=== PATIENT | female | born 1945 | race Caucasian/White ===

== ENCOUNTER 2016-09-22 17:59 | Inpatient (IN) | payer BC, MEDICARE ==
[~2016-09-22] VITALS: Ht 165.1 cm; Wt 67.6 kg
[~2016-09-22 17:59] MED LIST: HYDR-3111 PO
[2016-09-22 18:08] VITALS: BP 145/75; PULSE 98; RESP 16; TEMP 99.4; O2SAT 96
[2016-09-22] MEDS ORDERED: ROSU20 PO (18:36)
[2016-09-22 18:38] LABS: GLUCOSE,URINE NEG (NEG); KETONE, URINE TRACE mg/dL (NEG); NITRITE,URINE NEG (NEG); PH, URINE 5.5 (5.0-8.5)
[2016-09-22] MEDS ORDERED: ONDANSETRON HCL 4 MG/2 ML VIAL IVP ONE (18:45)
[2016-09-22] MEDS ORDERED: SODIUM CHLORIDE 0.9% FLUSH 10 ML FLUSH IV FLUSH PRN ×2 (18:45→21:45)
[2016-09-22] MEDS ORDERED: MORPHINE SULFATE 4 MG/ML INJ IV PUSH ONE (18:45)
--- NOTE | 2016-09-22 18:46 | PD ---
HPI . Abdominal pain Chief Complaint: Abdominal Pain Time Seen by Provider: 18:29 Travel History International Travel<30 days: No Contact w/Intl Traveler<30days: No Traveled to known affect area: No History of Present Illness HPI Patient presents with upper abdominal pain which started yesterday. It started 2 hours after eating Arabic food. It is associated with nausea but no vomiting. Symptoms have become progressively worse today. She describes a constant dull pain which is occasionally sharp. She states that her maximum pain is 8-9/10. It is associated with a poor appetite. She has not noticed any exacerbating or relieving factors. She has a previous history of idiopathic pancreatitis. She states that her symptoms today are similar to symptoms that she had then. PFSH Past Medical History Cancer: No Cardiovascular Problems: No High Cholesterol: Yes Diabetes: No Diminished Hearing: No Endocrine: No Gastrointestinal Disorders: Yes Genitourinary: No Immune Disorder: No Implanted Vascular Access Dvce: No Musculoskeletal: No Neurologic: No Psychiatric: No Reproductive: No Respiratory: No Immunizations Current: Yes Pancreatitis: Yes Thyroid Disease: No Tetanus Vaccination: Unknown Influenza Vaccination: Yes ?: Not Past Surgical History Eye Surgery: Yes (LID LIFT) Other Surgery: Yes Social History Alcohol Use: No Tobacco Use: No Substance Use: No Allergies-Medications (Allergen,Severity, Reaction): Coded Allergies: No Known Allergies (Verified , 09/22/16) Reported Meds & Prescriptions Reported Meds & Active Scripts Active Reported Crestor (Rosuvastatin Calcium) 20 Mg Tab 20 Mg PO DAILY Review of Systems Except as stated in HPI: all other systems reviewed are Neg General / Constitutional: Positive: Fever, Chills Gastrointestinal: Positive: Nausea, Abdominal Pain, Loss of Appetite, No: Vomiting, Diarrhea Genitourinary: No: Urgency, Frequency, Dysuria Physical Exam Narrative GENERAL: Awake and alert and in no acute distress. SKIN: Warm and dry. HEAD: Atraumatic. Normocephalic. EYES: Pupils equal and round. Extraocular movements are intact. Sclera anicteric. ENT: No nasal bleeding or discharge. Mucous membranes pink and moist. NECK: Trachea midline. Neck is supple. CARDIOVASCULAR: Regular rate and rhythm. RESPIRATORY: No accessory muscle use. GASTROINTESTINAL: Abdomen soft. Minimal epigastric tenderness. No right upper quadrant tenderness. Nondistended. MUSCULOSKELETAL: No obvious deformities. No edema. NEUROLOGICAL: Awake and alert. No obvious cranial nerve deficits. Motor grossly within normal limits. Normal speech. PSYCHIATRIC: Appropriate mood and affect; insight and judgment normal. Data Data Last Documented VS Vital Signs Date Time Temp Pulse Resp B/P Pulse Ox O2 Delivery O2 Flow Rate FiO2 09/22/16 18:08 99.4 98 16 145/75 96 Orders Urinalysis - C+S If Indicated (09/22/16 18:12) Complete Blood Count With Diff (09/22/16 18:33) Comprehensive Metabolic Panel (09/22/16 18:33) Lipase (09/22/16 18:33) Iv Access Insert/Monitor (09/22/16 18:33) Morphine Inj (Morphine Inj) (09/22/16 18:45) Ondansetron Inj (Zofran Inj) (09/22/16 18:45) Sodium Chloride 0.9% Flush (Ns Flush) (09/22/16 18:45) MDM Medical Decision Making Medical Screen Exam Complete: Yes Emergency Medical Condition: Yes Medical Record Reviewed: Yes (patient has a history of idiopathic pancreatitis in March 2012. Workup at that time was negative for cholecystitis. She has no history of hyperlipidemia and is a nondrinker.) Differential Diagnosis Differential diagnosis of abdominal pain includes but is not limited to gastritis, pancreatitis, hepatitis, gastroenteritis, gallbladder disease, constipation, urinary retention, UTI, peptic ulcer disease, diverticulitis or appendicitis Narrative Course Patient presents with upper abdominal pain similar to pain with previous pancreatitis. Lab work all on with IV analgesics and antiemetics have been ordered. Care will be turned over to the oncoming provider at 7 PM. Diagnosis Primary Impression: Epigastric pain Lyly Hills MD September 22, 2016 18:46
[2016-09-22 18:52] LABS: BLOOD, URINE MOD (NEG)
[2016-09-22 18:53] VITALS: BP 124/62; PULSE 88; RESP 18; O2SAT 96
[2016-09-22 18:54] LABS: MUCUS URINE FEW /lpf (OCC); URINE COLOR YELLOW (YELLW/STRAW)
[2016-09-22 18:55] LABS: COMMENT (UR) CULT NOT INDICATED; CULTURE IF INDICATED CULT NOT INDICATED; SQUAMOUS EPITHELIAL CELL URINE 0-5 /hpf (0-5); WBC, URINE 0-2 /hpf (0-5)
[2016-09-22 19:11] LABS: AUTOMATED NEUTROPHIL # 9.4 TH/MM3 (1.8-7.7); BASOPHIL % 0.4 % (0.0-2.0); CHLORIDE 104 MEQ/L (98-107); EOSINOPHIL # 0.1 TH/MM3 (0-0.4); EOSINOPHIL % 0.5 % (0.0-4.0); HEMATOCRIT 40.8 % (35.0-46.0); LYMPH % 13.7 % (9.0-44.0); LYMPHOCYTE # 1.6 TH/MM3 (1.0-4.8); MEAN CELL VOLUME 93.5 FL (80.0-100.0); MEAN CORPUSCULAR HEMOGLOBIN 30.8 PG (27.0-34.0); MEAN CORPUSCULAR HGB CONC 32.9 % (32.0-36.0); MONO % 7.9 % (0.0-8.0); NEUT % 77.5 % (16.0-70.0); PLATELET COUNT 292 TH/MM3 (150-450); POTASSIUM 3.7 MEQ/L (3.5-5.1); RED BLOOD COUNT 4.36 MIL/MM3 (4.00-5.30); RED CELL DISTRIBUTION WIDTH 13.6 % (11.6-17.2); SODIUM (NA) 140 MEQ/L (136-145)
[2016-09-22 19:16] LABS: ANION GAP 10 MEQ/L (5-15); BICARBONATE 26.4 MEQ/L (21.0-32.0); BLOOD UREA NITROGEN 20 MG/DL (7-18)
[2016-09-22 19:18] LABS: ALT (GPT) 22 U/L (10-53); AST (GOT) 17 U/L (15-37)
[2016-09-22 19:19] LABS: GLOMERULAR FILTRATION RATE 81 ML/MIN (>89)
[2016-09-22 19:20] LABS: TOTAL BILIRUBIN ADULT 0.7 MG/DL (0.2-1.0)
[2016-09-22 19:21] LABS: ALKALINE PHOSPHATASE 76 U/L (45-117)
[2016-09-22 19:26] LABS: HEMO FLAGS AUTO DIFF
[2016-09-22 19:47] LABS: PLATELET ESTIMATE SMEAR NORMAL (NORMAL); PLATELET MORPHOLOGY NORMAL (NORMAL); SCAN/DIFF AUTO DIFF CONFIRMED
--- NOTE | 2016-09-22 20:39 | RADHPO ---
EXAM DATE/TIME: 09/22/2016 19:47 [facility] COMPARISON: No previous studies available for comparison. INDICATIONS : Bilateral upper quadrant pain for two days with nausea. IV CONTRAST: 95 cc Omnipaque 350 (iohexol) IV ORAL CONTRAST: No oral contrast ingested. RADIATION DOSE: 8.36 CTDIvol (mGy) MEDICAL HISTORY : Pancreatitis. Hepatitis A. SURGICAL HISTORY : None. ENCOUNTER: Initial ACUITY: 2 days PAIN SCALE: 5/10 LOCATION: Bilateral upper quadrant TECHNIQUE: Volumetric scanning of the abdomen and pelvis was performed. Using automated exposure control and ad justment of the mA and/or kV according to patient size, radiation dose was kept as low as reasonably achievable to obtain optimal diagnostic quality images. FINDINGS: LOWER LUNGS: The visualized lower lungs are clear. LIVER: There is a tiny cyst within the right lobe measuring 13 mm. There is no dilation of the biliary tree. No calcified gallstones. SPLEEN: Normal size without lesion. PANCREAS: Within normal limits. KIDNEYS: Normal in size and shape. There is no solid mass, stone or hydronephrosis. There is a 2.4 cm right r enal cyst. ADRENAL GLANDS: Within normal limits. VASCULAR: There is no aortic aneurysm. BOWEL/MESENTERY: There is focal wall thickening and pericolic inflammatory changes in the region of the proximal sigmo id colon consistent with probable acute diverticulitis. No pericolic abscess is noted. No bowel obstr uction is noted. ABDOMINAL WALL: Within normal limits. RETROPERITONEUM: There is no lymphadenopathy. BLADDER: No wall thickening or mass. REPRODUCTIVE: Within normal limits. INGUINAL: There is no lymphadenopathy or hernia. MUSCULOSKELETAL: Diffuse degenerative changes are noted throughout the thoracolumbar spine. CONCLUSION: 1. Acute diverticulitis involving the proximal sigmoid colon without pericolic abscess. 2. Simple cysts within the right lobe of the liver and right kidney. 3. Degenerative changes throughout the thoraco-lumbar spine. Harrison Moeller MD on September 22, 2016 at 20:32 Board Certified Radiologist. This report was verified electronically.
[2016-09-22 20:57] VITALS: BP 119/59; PULSE 79; RESP 15; O2SAT 95
[2016-09-22] MEDS ORDERED: IOHEXOL 350 MG/ML 10 ML VIAL (for RAD DIAG) IV ONE (20:57)
[2016-09-22] MEDS ORDERED: ACETAMINOPHEN 325 MG TAB PO PRN (21:45)
[2016-09-22] MEDS ORDERED: ONDANSETRON HCL 4 MG/2 ML VIAL IVP PRN (21:45)
[2016-09-22] MEDS ORDERED: BISACODYL 10 MG SUPP RECTAL PRN (21:45)
--- NOTE | 2016-09-22 21:50 | PD ---
Physical Exam Time Seen by Provider: 21:[address] Hills left this patient with me to check the CT scan and make a disposition. Data Data Last Documented VS Vital Signs Date Time Temp Pulse Resp B/P Pulse Ox O2 Delivery O2 Flow Rate FiO2 09/22/16 21:09 92 Nasal Cannula 2 09/22/16 20:57 79 15 119/59 09/22/16 18:08 99.4 Orders Urinalysis - C+S If Indicated (09/22/16 18:12) Complete Blood Count With Diff (09/22/16 18:33) Comprehensive Metabolic Panel (09/22/16 18:33) Lipase (09/22/16 18:33) Iv Access Insert/Monitor (09/22/16 18:33) Morphine Inj (Morphine Inj) (09/22/16 18:45) Ondansetron Inj (Zofran Inj) (09/22/16 18:45) Sodium Chloride 0.9% Flush (Ns Flush) (09/22/16 18:45) Ct Abd/Pel W Iv Contrast(Rout) (09/22/16 18:58) Iohexol 350 Inj (Omnipaque 350 Inj) (09/22/16 20:57) Admit Order (Ed Use Only) (09/22/16 21:45) Ciprofloxacin 400 Mg Premix (Cipro 400 M (09/22/16 22:00) Metronidazole 500 Mg Inj (Flagyl 500 Mg (09/22/16 21:45) Admit To Inpatient (09/22/16 ) Vital Signs (Adult) Q4H (09/22/16 21:44) Activity Oob Ad Eveline (09/22/16 21:44) Intake + Output THOMAS.QSHIFT (09/22/16 21:44) Diet Regular Basic (09/23/16 Breakfast) Sodium Chlor 0.9% 1000 Ml Inj (Ns 1000 M (09/22/16 21:44) Sodium Chloride 0.9% Flush (Ns Flush) (09/22/16 21:45) Sodium Chloride 0.9% Flush (Ns Flush) (09/23/16 09:00) Ondansetron Inj (Zofran Inj) (09/22/16 21:45) Bisacodyl Supp (Dulcolax Supp) (09/22/16 21:45) Comprehensive Metabolic Panel (09/23/16 06:00) Complete Blood Count With Diff (09/23/16 06:00) Scd Bilateral/Knee High THOMAS.BID (09/22/16 21:44) Angelito Bilateral/Knee High THOMAS.QSHIFT (09/22/16 21:44) Acetaminophen (Tylenol) (09/22/16 21:45) Acetamin-Hydrocod 325-5 Mg ([place] 5-325 (09/22/16 21:45) Morphine Inj (Morphine Inj) (09/22/16 21:45) Inpatient Certification (09/22/16 ) Admit Order (Ed Use Only) (09/22/16 21:50) Labs Laboratory Tests Test 09/22/16 09/22/16 18:30 18:45 Urine Color YELLOW Urine Turbidity CLEAR Urine pH 5.5 Urine Specific [place] 1.015 Urine Protein NEG mg/dL Urine Glucose (UA) NEG mg/dL Urine Ketones TRACE mg/dL Urine Occult Blood MOD Urine Nitrite NEG Urine Bilirubin NEG Urine Leukocyte Esterase NEG Urine RBC 4-9 /hpf Urine WBC 0-2 /hpf Urine Squamous Epithelial 0-5 /hpf Cells Urine Amorphous Sediment SMALL Urine Mucus FEW /lpf Microscopic Urinalysis Comment CULT NOT INDICATED White Blood Count 12.0 TH/MM3 Red Blood Count 4.36 MIL/MM3 Hemoglobin 13.4 GM/DL Hematocrit 40.8 % Mean Corpuscular Volume 93.5 FL Mean Corpuscular Hemoglobin 30.8 PG Mean Corpuscular Hemoglobin 32.9 % Concent Red Cell Distribution Width 13.6 % Platelet Count 292 TH/MM3 Mean Platelet Volume 8.0 FL Neutrophils (%) (Auto) 77.5 % Lymphocytes (%) (Auto) 13.7 % Monocytes (%) (Auto) 7.9 % Eosinophils (%) (Auto) 0.5 % Basophils (%) (Auto) 0.4 % Neutrophils # (Auto) 9.4 TH/MM3 Lymphocytes # (Auto) 1.6 TH/MM3 Monocytes # (Auto) 0.9 TH/MM3 Eosinophils # (Auto) 0.1 TH/MM3 Basophils # (Auto) 0.0 TH/MM3 CBC Comment AUTO DIFF Differential Comment AUTO DIFF CONFIRMED Platelet Estimate NORMAL Platelet Morphology Comment NORMAL Red Cell Morphology Comment NORMAL Sodium Level 140 MEQ/L Potassium Level 3.7 MEQ/L Chloride Level 104 MEQ/L Carbon Dioxide Level 26.4 MEQ/L Anion Gap 10 MEQ/L Blood Urea Nitrogen 20 MG/DL Creatinine 0.71 MG/DL Estimat Glomerular Filtration 81 ML/MIN Rate Random Glucose 115 MG/DL Calcium Level 8.7 MG/DL Total Bilirubin 0.7 MG/DL Aspartate Amino Transf 17 U/L (AST/SGOT) Alanine Aminotransferase 22 U/L (ALT/SGPT) Alkaline Phosphatase 76 U/L Total Protein 7.1 GM/DL Albumin 3.3 GM/DL Lipase 220 U/L [facility] Medical Record Reviewed: Yes Supervised Visit with SANJANA: Yes Interpretation(s) The CT scan shows focal wall thickening and pericolic inflammatory changes in the region of the proximal sigmoid consistent with acute diverticulitis. No pericolic abscess is noted and no bowel obstruction is noted. The urine shows trace ketones, moderate occult blood and 4-9 red cells but is otherwise normal and culture is not indicated. The CBC shows a white count of 12,000 with 76% neutrophils but is otherwise unremarkable. The complete metabolic profile shows a BUN of 20, GFR of 81 and albumen of 3.3 but is otherwise normal. The lipase is normal. Differential Diagnosis Acute diverticulitis, small bowel obstruction, intra-abdominal abscess, ischemic bowel, electrolyte disorder, anemia, urinary tract infection, colitis Narrative Course The patient has acute diverticulitis. The considering the patient's advanced age, her leukocytosis and mainly the severe pain9/[address] findings of thickened colon, the patient will be better served with inpatient treatment. I discussed the patient with Dr. Ruvalcaba, the patient will be admitted to her. Physician Communication Physician Communication I discussed the patient with Dr. Rodriguez, the patient will be admitted to her. Diagnosis Primary Impression: Epigastric pain Additional Impression: Acute diverticulitis Admitting Information Admitting Physician Requests: Admit Drew Snell MD September 22, 2016 21:50
[2016-09-22] MEDS ORDERED: LEVOFLOXACIN 500 MG PREMIX INJ 100 ML IV ONE (22:00)
[2016-09-22] MEDS ORDERED: metroNIDAZOLE 500 MG INJ 100 ML IV ONE (22:00)
[2016-09-22] MEDS: SODIUM CHLOR 0.9% 1000 ML INJ 1,000 ML IV SCH (22:19)
[2016-09-22] MEDS: CIPROFLOXACIN 400 MG PREMIX 200 ML IV SCH (22:19)
[2016-09-22 22:44] VITALS: BP 126/64
[2016-09-22] MEDS: metroNIDAZOLE 500 MG INJ 100 ML IV SCH (23:01)
[2016-09-22] MEDS: ACETAMINOPHEN/HYDROcodone 325 MG/5 MG TAB PO PRN (23:07)
[2016-09-23 00:15] VITALS: BP 108/61; PULSE 82; RESP 16; TEMP 98.4; O2SAT 93
[2016-09-23] MEDS: ACETAMINOPHEN/HYDROcodone 325 MG/5 MG TAB PO PRN ×2 (05:07→09:39)
[2016-09-23] MEDS: SODIUM CHLOR 0.9% 1000 ML INJ 1,000 ML IV SCH ×2 (05:07→15:42)
[2016-09-23 05:44] LABS: BASOPHIL % 0.3 % (0.0-2.0); EOSINOPHIL % 0.5 % (0.0-4.0); HEMATOCRIT 36.5 % (35.0-46.0); HEMO FLAGS DIFF FINAL; LYMPH % 10.3 % (9.0-44.0); MEAN CELL VOLUME 94.2 FL (80.0-100.0); MEAN CORPUSCULAR HEMOGLOBIN 31.5 PG (27.0-34.0); MEAN CORPUSCULAR HGB CONC 33.5 % (32.0-36.0); MONO % 9.2 % (0.0-8.0); NEUT % 79.7 % (16.0-70.0); PLATELET COUNT 253 TH/MM3 (150-450); RED BLOOD COUNT 3.88 MIL/MM3 (4.00-5.30); RED CELL DISTRIBUTION WIDTH 13.9 % (11.6-17.2); WHITE BLOOD COUNT 9.9 TH/MM3 (4.0-11.0)
[2016-09-23 05:51] LABS: CHLORIDE 105 MEQ/L (98-107); POTASSIUM 3.9 MEQ/L (3.5-5.1); SODIUM (NA) 141 MEQ/L (136-145)
[2016-09-23 05:56] LABS: BLOOD UREA NITROGEN 16 MG/DL (7-18)
[2016-09-23 05:57] LABS: ANION GAP 8 MEQ/L (5-15); BICARBONATE 28.3 MEQ/L (21.0-32.0)
[2016-09-23 05:58] LABS: ALT (GPT) 16 U/L (10-53)
[2016-09-23 05:59] LABS: AST (GOT) 12 U/L (15-37); GLOMERULAR FILTRATION RATE 94 ML/MIN (>89)
[2016-09-23 06:02] LABS: TOTAL BILIRUBIN ADULT 0.8 MG/DL (0.2-1.0)
[2016-09-23 06:03] LABS: ALKALINE PHOSPHATASE 67 U/L (45-117)
[2016-09-23] MEDS: MORPHINE SULFATE 4 MG/ML INJ IV PRN ×2 (06:55→11:55)
[2016-09-23] MEDS: metroNIDAZOLE 500 MG INJ 100 ML IV SCH ×2 (06:56→15:40)
--- NOTE | 2016-09-23 07:17 | HHI.HP ---
[facility] Service [facility] Primary Care Physician Delta Monteiro MD Admission Diagnosis acute diverticulitis Diagnoses: (1) Acute diverticulitis Diagnosis: Principal (2) Leukocytosis Diagnosis: Principal (3) Acute prerenal azotemia Diagnosis: Principal Chief Complaint: Abdominal pain Travel History International Travel<30 Days: No Contact w/Intl Traveler <30 Da: No Traveled to Known Affected Are: No History of Present Illness Written by Ethan Snell, acting as scribe for Dr. Fisher on 09/23/16 at 07: 11. 71-year-old female with known history of hyperlipidemia, history of pancreatitis who presented to the hospital because of abdominal pain. Patient stated that her discomfort started 4 days ago with generalized diffuse discomfort whenever she bent over to tie her shoes. She indicated that the pain progressively got worse until or Saturday night, she cannot tell exactly which night. She indicates that the pain in lower abdomen progress to an 8/10 on a pain scale. She did go to work on Saturday morning, however she was unable to finish the day and went home 2 hours early because of the abdominal pain. When she got home she laid down to rest because she had increased fatigue, decreased appetite, she indicated having chills and that she had a fever. However she did not check her temperature at that time. Because of those reasons she came to the emergency department for evaluation. Upon evaluation patient was found to have abnormal findings to include leukocytosis, prerenal azotemia, CT scan indicating diverticulitis. Patient was recommended admission to the hospital for continued management. Patient denied any runny nose, cough, congestion, diarrhea, constipation, melena, hematochezia. She indicated that she had nausea but no vomiting. Review of Systems Constitutional: DENIES: Diaphoretic episodes, Fatigue, Fever, Weight gain, Weight loss, Chills, Dizziness, Change in appetite, Night Sweats Eyes: DENIES: Blurred vision, Diplopia, Eye inflammation, Eye pain, Vision loss , Double Vision Ears, nose, mouth, throat: COMPLAINS OF: Throat pain, DENIES: Vertigo, Nasal discharge, Hoarseness, Running Nose, Sinus Pain Cardiovascular: DENIES: Chest pain, Palpitations, Syncope, Dyspnea on Exertion , Lower Extremity Edema, Orthopnea Gastrointestinal: COMPLAINS OF: Abdominal pain, Nausea, DENIES: Black stools, Bloody stools, Constipation, Diarrhea, Vomiting, Difficulty Swallowing, Anorexia Neurologic: DENIES: Abnormal gait, Headache, Localized weakness, Paresthesias, Speech Problems, Tremor, Poor Balance Psychiatric: DENIES: Anxiety, Confusion, Mood changes, Depression, Hallucinations, Agitation, Suicidal Ideation, Homicidal Ideation, Delusions Past Family Social History Past Medical History Hyperlipidemia History of pancreatitis Past Surgical History Left foot surgery Eyelid surgery Reported Medications Reported Meds & Active Scripts Active Reported Crestor (Rosuvastatin Calcium) 20 Mg Tab 20 Mg PO DAILY Allergies: Coded Allergies: No Known Allergies (Verified , 09/22/16) Family History Reviewed is significant for mother with breast cancer, coronary disease requiring open heart surgery. Father with heart disease and diabetes Social History Patient denies any tobacco, alcohol or illicit drugs Physical Exam Vital Signs Vital Signs Date Time Temp Pulse Resp B/P Pulse Ox O2 Delivery O2 Flow Rate FiO2 09/23/16 06:08 18 09/23/16 05:24 09/23/16 00:15 98.4 82 16 108/61 93 09/22/16 22:44 74 17 126/64 98 09/22/16 21:09 92 Nasal Cannula 2 09/22/16 20:57 79 15 119/59 95 Room Air 09/22/16 19:04 15 09/22/16 18:53 88 18 124/62 96 Room Air 09/22/16 18:08 99.4 98 16 145/75 96 Physical Exam GENERAL: Well-developed, well-nourished, in no acute distress. alert and orientated HEENT: Head is normocephalic without any lesions or masses noted. Facial features are symmetric. Eyes: Pupils equal round reactive to light. Extraocular muscles are intact. Conjunctivae were clear. Oropharyngeal: Pharynx without any erythema edema. Tongue is midline without deviation. Buccal mucosa is moist without any masses or lesions NECK: Supple without any masses. Trachea midline no deviation. No JVD, no bruits are appreciated CARDIAC: Regular rhythm, regular rate. S1/S2 are heard. No murmurs gallops or rubs. LUNGS: Clear to auscultation bilaterally. No wheeze, rhonchi or rales. No use of accessory muscles on inspiration or expiration. ABDOMEN: Soft, diffuse lower abdominal tenderness. Nondistended. Bowel sounds heard in all 4 quadrants. No organomegaly or masses. Negative rebound, negative guarding EXTREMITIES: No edema, pulses are equal bilaterally. No cyanosis or clubbing NEUROLOGY: Mood and affect appear appropriate. Cranial nerves II through XII grossly intact. Muscle strength 5/5 in upper and lower extremities bilaterally. Deep tendon reflexes are 2+ in upper and lower extremities bilaterally. Laboratory Laboratory Tests Test 09/22/16 09/22/16 09/23/16 18:30 18:45 05:03 Urine Color YELLOW Urine Turbidity CLEAR Urine pH 5.5 Urine Specific [place] 1.015 Urine Protein NEG Urine Glucose (UA) NEG Urine Ketones TRACE Urine Occult Blood MOD Urine Nitrite NEG Urine Bilirubin NEG Urine Leukocyte Esterase NEG Urine RBC 4-9 Urine WBC 0-2 Urine Squamous Epithelial 0-5 Cells Urine Amorphous Sediment SMALL Urine Mucus FEW Microscopic Urinalysis Comment CULT NOT INDICATED White Blood Count 12.0 9.9 Red Blood Count 4.36 3.88 Hemoglobin 13.4 12.2 Hematocrit 40.8 36.5 Mean Corpuscular Volume 93.5 94.2 Mean Corpuscular Hemoglobin 30.8 31.5 Mean Corpuscular Hemoglobin 32.9 33.5 Concent Red Cell Distribution Width 13.6 13.9 Platelet Count 292 253 Mean Platelet Volume 8.0 7.7 Neutrophils (%) (Auto) 77.5 79.7 Lymphocytes (%) (Auto) 13.7 10.3 Monocytes (%) (Auto) 7.9 9.2 Eosinophils (%) (Auto) 0.5 0.5 Basophils (%) (Auto) 0.4 0.3 Neutrophils # (Auto) 9.4 8.0 Lymphocytes # (Auto) 1.6 1.0 Monocytes # (Auto) 0.9 0.9 Eosinophils # (Auto) 0.1 0.0 Basophils # (Auto) 0.0 0.0 CBC Comment AUTO DIFF DIFF FINAL Differential Comment AUTO DIFF CONFIRMED Platelet Estimate NORMAL Platelet Morphology Comment NORMAL Red Cell Morphology Comment NORMAL Sodium Level 140 141 Potassium Level 3.7 3.9 Chloride Level 104 105 Carbon Dioxide Level 26.4 28.3 Anion Gap 10 8 Blood Urea Nitrogen 20 16 Creatinine 0.71 0.62 Estimat Glomerular Filtration 81 94 Rate Random Glucose 115 110 Calcium Level 8.7 8.6 Total Bilirubin 0.7 0.8 Aspartate Amino Transf 17 12 (AST/SGOT) Alanine Aminotransferase 22 16 (ALT/SGPT) Alkaline Phosphatase 76 67 Total Protein 7.1 6.1 Albumin 3.3 2.8 Lipase 220 Result Diagram: 09/23/16 0503 09/23/16 0503 Imaging Last Impressions Abdomen/Pelvis CT 09/22/16 1858 Signed Impressions: Service Date/Time: Thursday, September 22, 2016 19:47 - CONCLUSION: 1. Acute diverticulitis involving the proximal sigmoid colon without pericolic abscess. 2. Simple cysts within the right lobe of the liver and right kidney. 3. Degenerative changes throughout the thoraco-lumbar spine. Harrison Moeller MD Assessment and Plan Assessment and Plan 71-year-old female who presented to hospital because acute onset abdominal pain with associated nausea Acute diverticulitis CT scan does indicate acute diverticulitis involving the proximal sigmoid colon without pericolic abscess. Continue IV fluids Full liquid Diet, advance as tolerated IV antibiotics to include Cipro and Flagyl Pain control with [place] and morphine Continue to monitor for clinical improvement Leukocytosis, improved Possible etiologies could include acute infection from diverticulitis or concentrated from decreased oral intake Prerenal azotemia, resolved Likely secondary to mild dehydration from decreased oral intake Monitor renal functions DVT prevention Sequential compression devices Physician Certification 2 Midnight Certification Type: Admission for Inpatient Services Order for Inpatient Services The services are ordered in accordance with Medicare regulations or non- Medicare payer requirements, as applicable. In the case of services not specified as inpatient-only, they are appropriately provided as inpatient services in accordance with the 2-midnight benchmark. Estimated LOS (days): 2 days is the estimated time the patient will need to remain in the hospital, assuming treatment plan goals are met and no additional complications. Post-Hospital Plan: Not yet determined Problem Qualifiers (1) Leukocytosis: Qualified Code: D72.829 - Leukocytosis, unspecified type Ethan Snell September 23, 2016 07:17 Padmini Fisher MD September 23, 2016 09:52
[2016-09-23 08:00] VITALS: BP 154/89; PULSE 75; RESP 18; TEMP 98.3; O2SAT 93
[2016-09-23] MEDS ORDERED: MENTHOL LOZENGE BUCCAL PRN (08:00)
[2016-09-23] MEDS: SODIUM CHLORIDE 0.9% FLUSH 10 ML FLUSH IV FLUSH SCH ×2 (09:00→21:35)
[2016-09-23] MEDS ORDERED: PNEUMOCOCCAL POLYVALENT INJ 25 MCG/0.5 ML SYR IM ONE (09:00)
[2016-09-23] MEDS: CIPROFLOXACIN 400 MG PREMIX 200 ML IV SCH ×2 (09:33→21:36)
[2016-09-23 12:00] VITALS: BP_SYST 145; BP_SYST 154; BP_DIAS 89; PULSE 75; RESP 18; RESP 20; TEMP 98.3; TEMP 98.5; O2SAT 93
[2016-09-23 16:00] VITALS: BP 106/67; PULSE 66; RESP 18; TEMP 99.5; O2SAT 94
[2016-09-23 20:55] VITALS: BP 114/58; PULSE 63; RESP 16; TEMP 98.1; O2SAT 96
[2016-09-24] VITALS: BP 135/76; PULSE 70; RESP 18; TEMP 97.9; O2SAT 97
[2016-09-24] MEDS: metroNIDAZOLE 500 MG INJ 100 ML IV SCH ×3 (01:43→15:40)
[2016-09-24] MEDS: SODIUM CHLOR 0.9% 1000 ML INJ 1,000 ML IV SCH ×2 (06:14→14:15)
[2016-09-24] MEDS: SODIUM CHLORIDE 0.9% FLUSH 10 ML FLUSH IV FLUSH SCH ×2 (07:59→21:00)
[2016-09-24 08:00] VITALS: BP 141/82; PULSE 66; RESP 18; TEMP 98.8; O2SAT 96
[2016-09-24] MEDS: CIPROFLOXACIN 400 MG PREMIX 200 ML IV SCH ×2 (09:11→22:18)
--- NOTE | 2016-09-24 11:50 | HHI.PR ---
Subjective Remarks Patient still having tenderness in her abdomen She started on full liquid diet last night but she does seem to want to advance at this point Afebrile No nausea or vomiting, no blood in stool Objective Vitals Vital Signs Date Time Temp Pulse Resp B/P Pulse Ox O2 Delivery O2 Flow Rate FiO2 09/24/16 08:00 98.8 66 18 141/82 96 09/24/16 04:47 09/24/16 00:00 97.9 70 18 135/76 97 09/23/16 20:55 98.1 63 16 114/58 96 09/23/16 16:38 20 09/23/16 16:00 99.5 66 18 106/67 94 09/23/16 12:00 98.5 75 20 145/89 93 09/23/16 12:00 20 I/O 09/23/16 09/23/16 09/23/16 09/24/16 09/24/16 09/24/16 07:00 15:00 23:00 07:00 15:00 23:00 Intake Total 826 ml 905 ml 1500 ml Balance 826 ml 905 ml 1500 ml Intake Oral 240 ml IV Total 586 ml 905 ml 1500 ml # Voids 2 1 # Bowel Movements 0 0 Result Diagram: 09/23/16 0503 09/23/16 0503 Objective Remarks - GENERAL: This is a well-nourished, well-developed patient, in no apparent distress. SKIN: No rashes, warm and dry HEAD: Atraumatic. Normocephalic. EYES: Pupils equal round and reactive. Extraocular motions intact. No scleral icterus. ENT: Nose without bleeding, or drainage, Airway patent. NECK: Trachea midline. Supple CARDIOVASCULAR: Regular rate and rhythm without murmurs, gallops, or rubs. RESPIRATORY: Fair air entry bilaterally. No wheezes, rales, or rhonchi. GASTROINTESTINAL: Abdomen soft, tender to palpation, nondistended. Positive bowel sounds MUSCULOSKELETAL: Extremities without clubbing, cyanosis, or edema. Pedal pulses appreciated NEUROLOGICAL: Awake and alert. Moves all extremity. Normal speech.no focal neurological deficit A/P Problem List: (1) Acute diverticulitis ICD Code: K57.92 Status: Acute (2) Leukocytosis ICD Code: D72.829 Status: Acute (3) Acute prerenal azotemia ICD Code: R79.89 Status: Acute Assessment and Plan 71-year-old female who presented to hospital because acute onset abdominal pain with associated nausea Acute diverticulitis CT scan does indicate acute diverticulitis involving the proximal sigmoid colon without pericolic abscess. Continue IV fluids Full liquid Diet, advance as tolerated IV antibiotics to include Cipro and Flagyl Pain control with [place] and morphine Continue to monitor for clinical improvement Leukocytosis, improved Possible etiologies could include acute infection from diverticulitis or concentrated from decreased oral intake Prerenal azotemia, resolved Likely secondary to mild dehydration from decreased oral intake Monitor renal functions DVT prevention Sequential compression devices Problem Qualifiers (1) Leukocytosis: Qualified Code: D72.829 - Leukocytosis, unspecified type Padmini Fisher MD September 24, 2016 11:50
[2016-09-24 12:00] VITALS: BP 151/88; PULSE 70; RESP 20; TEMP 99; O2SAT 96
[2016-09-24 16:00] VITALS: BP 141/80; PULSE 69; RESP 20; TEMP 98.6; O2SAT 95
[2016-09-24] MEDS: MORPHINE SULFATE 4 MG/ML INJ IV PRN (18:16)
[2016-09-24 20:00] VITALS: BP 144/92; PULSE 68; RESP 20; TEMP 98.3; O2SAT 97
[2016-09-24] MEDS: ACETAMINOPHEN/HYDROcodone 325 MG/5 MG TAB PO PRN (22:25)
[2016-09-25] VITALS: BP 137/89; PULSE 63; RESP 16; TEMP 97.8; O2SAT 98
[2016-09-25] MEDS: metroNIDAZOLE 500 MG INJ 100 ML IV SCH ×3 (00:32→17:03)
[2016-09-25] MEDS: SODIUM CHLOR 0.9% 1000 ML INJ 1,000 ML IV SCH ×3 (03:15→17:03)
[2016-09-25 08:00] VITALS: BP 152/85; PULSE 74; RESP 18; TEMP 96.8; O2SAT 96
[2016-09-25] MEDS: CIPROFLOXACIN 400 MG PREMIX 200 ML IV SCH ×2 (08:24→20:55)
[2016-09-25] MEDS: SODIUM CHLORIDE 0.9% FLUSH 10 ML FLUSH IV FLUSH SCH ×2 (08:24→20:54)
[2016-09-25] MEDS: LISINOPRIL 5 MG TAB PO SCH (11:25)
[2016-09-25] MEDS: ATORVASTATIN 40 MG TAB PO SCH (11:25)
[2016-09-25 11:50] VITALS: BP 151/89; PULSE 64; RESP 18; TEMP 98.1; O2SAT 96
[2016-09-25] MEDS ORDERED: CIPR500T2 PO (12:54)
[2016-09-25] MEDS ORDERED: LISI-519 PO (12:54)
[2016-09-25] MEDS ORDERED: METR-1 PO (12:54)
[2016-09-25 16:00] VITALS: BP 127/78; PULSE 72; RESP 18; TEMP 98.2; O2SAT 95
--- NOTE | 2016-09-25 17:42 | HHI.PR ---
Subjective Remarks Condition seen and examined earlier this morning She's laying in bed stated abdominal discomfort is less today, she had 2 bowel movements yesterday which was firm no nausea or vomiting she is afebrile She still on clear liquid within a try to advance her diet today Pressure slightly elevated we'll introduce her to lisinopril considering ketonuria in UA Objective Vitals Vital Signs Date Time Temp Pulse Resp B/P Pulse Ox O2 Delivery O2 Flow Rate FiO2 09/25/16 16:00 98.2 72 18 127/78 95 09/25/16 11:50 98.1 64 18 151/89 96 09/25/16 08:00 96.8 74 18 152/85 96 09/25/16 00:00 97.8 63 16 137/89 98 09/24/16 20:00 98.3 68 20 144/92 97 I/O 09/24/16 09/24/16 09/24/16 09/25/16 09/25/16 09/25/16 07:00 15:00 23:00 07:00 15:00 23:00 Intake Total 1500 ml 960 ml 1849 ml 606 ml 360 ml Balance 1500 ml 960 ml 1849 ml 606 ml 360 ml Intake Oral 960 ml 60 ml 360 ml IV Total 1500 ml 1849 ml 546 ml # Voids 3 1 3 # Bowel Movements 2 0 1 Result Diagram: 09/23/16 0503 09/23/16 0503 Objective Remarks - GENERAL: This is a well-nourished, well-developed patient, in no apparent distress. SKIN: No rashes, warm and dry HEAD: Atraumatic. Normocephalic. EYES: Pupils equal round and reactive. Extraocular motions intact. No scleral icterus. ENT: Nose without bleeding, or drainage, Airway patent. NECK: Trachea midline. Supple CARDIOVASCULAR: Regular rate and rhythm without murmurs, gallops, or rubs. RESPIRATORY: Fair air entry bilaterally. No wheezes, rales, or rhonchi. GASTROINTESTINAL: Abdomen soft, much less tenderness to palpation today, nondistended. Positive bowel sounds MUSCULOSKELETAL: Extremities without clubbing, cyanosis, or edema. Pedal pulses appreciated NEUROLOGICAL: Awake and alert. Moves all extremity. Normal speech.no focal neurological deficit A/P Problem List: (1) Acute diverticulitis ICD Code: K57.92 Status: Acute (2) Leukocytosis ICD Code: D72.829 Status: Acute (3) Acute prerenal azotemia ICD Code: R79.89 Status: Acute Assessment and Plan 71-year-old female who presented to hospital because acute onset abdominal pain with associated nausea Acute diverticulitis CT scan does indicate acute diverticulitis involving the proximal sigmoid colon without pericolic abscess. Continue IV fluids Full liquid Diet, advance as tolerated IV antibiotics to include Cipro and Flagyl Pain control with [place] and morphine Continue to monitor for clinical improvement Leukocytosis, improved Possible etiologies could include acute infection from diverticulitis or concentrated from decreased oral intake Hypertension Start lisinopril low dose 2.5 daily and monitor blood pressure Prerenal azotemia, resolved Likely secondary to mild dehydration from decreased oral intake Monitor renal functions DVT prevention Sequential compression devices Discharge Planning In a.m. on Cipro Flagyl if stable able to eat a full diet afebrile without problem Problem Qualifiers (1) Leukocytosis: Qualified Code: D72.829 - Leukocytosis, unspecified type Padmini Fisher MD September 25, 2016 17:42
[2016-09-25 20:00] VITALS: BP 126/75; PULSE 70; RESP 20; TEMP 98.1; O2SAT 97
[2016-09-26] VITALS: BP 146/84; PULSE 60; RESP 20; TEMP 98.6; O2SAT 97
[2016-09-26] MEDS: SODIUM CHLOR 0.9% 1000 ML INJ 1,000 ML IV SCH (05:44)
[2016-09-26 08:00] VITALS: BP 144/89; PULSE 57; RESP 18; TEMP 97.9; O2SAT 95
[2016-09-26 08:01] LABS: POTASSIUM 3.7 MEQ/L (3.5-5.1)
[2016-09-26 08:08] LABS: BICARBONATE 30.5 MEQ/L (21.0-32.0)
[2016-09-26] MEDS: LISINOPRIL 5 MG TAB PO SCH (08:31)
[2016-09-26] MEDS: ATORVASTATIN 40 MG TAB PO SCH (08:32)
[2016-09-26] MEDS: SODIUM CHLORIDE 0.9% FLUSH 10 ML FLUSH IV FLUSH SCH (08:32)
[2016-09-26] MEDS: CIPROFLOXACIN 400 MG PREMIX 200 ML IV SCH (08:32)
[2016-09-26] MEDS: metroNIDAZOLE 500 MG INJ 100 ML IV SCH ×2 (08:32)
--- NOTE | 2016-09-26 09:32 | HHI.DS ---
Discharge Summary Admission Date September 22, 2016 at 9:47 pm Discharge Date: September 26, 2016 Admitting Diagnosis acute diverticulitis (1) Acute diverticulitis ICD Code: K57.92 Diagnosis: Principal (2) Leukocytosis ICD Code: D72.829 Diagnosis: Principal (3) Acute prerenal azotemia ICD Code: R79.89 Diagnosis: Principal Procedures none Brief History - From Admission Written by Ethan Snell, acting as scribe for Dr. Fisher on 09/23/16 at 07: 11. 71-year-old female with known history of hyperlipidemia, history of pancreatitis who presented to the hospital because of abdominal pain. Patient stated that her discomfort started 4 days ago with generalized diffuse discomfort whenever she bent over to tie her shoes. She indicated that the pain progressively got worse until or Saturday night, she cannot tell exactly which night. She indicates that the pain in lower abdomen progress to an 8/10 on a pain scale. She did go to work on Saturday morning, however she was unable to finish the day and went home 2 hours early because of the abdominal pain. When she got home she laid down to rest because she had increased fatigue, decreased appetite, she indicated having chills and that she had a fever. However she did not check her temperature at that time. Because of those reasons she came to the emergency department for evaluation. Upon evaluation patient was found to have abnormal findings to include leukocytosis, prerenal azotemia, CT scan indicating diverticulitis. Patient was recommended admission to the hospital for continued management. Patient denied any runny nose, cough, congestion, diarrhea, constipation, melena, hematochezia. She indicated that she had nausea but no vomiting. CBC/BMP: 09/23/16 0503 09/26/16 0715 Significant Findings Diverticulitis Imaging Last Impressions Abdomen/Pelvis CT 09/22/16 2458 Signed Impressions: Service Date/Time: Thursday, September 22, 2016 19:47 - CONCLUSION: 1. Acute diverticulitis involving the proximal sigmoid colon without pericolic abscess. 2. Simple cysts within the right lobe of the liver and right kidney. 3. Degenerative changes throughout the thoraco-lumbar spine. Harrison Moeller MD PE at Discharge - GENERAL: This is a well-nourished, well-developed patient, in no apparent distress. SKIN: No rashes, warm and dry HEAD: Atraumatic. Normocephalic. EYES: Pupils equal round and reactive. Extraocular motions intact. No scleral icterus. ENT: Nose without bleeding, or drainage, Airway patent. NECK: Trachea midline. Supple CARDIOVASCULAR: Regular rate and rhythm without murmurs, gallops, or rubs. RESPIRATORY: Fair air entry bilaterally. No wheezes, rales, or rhonchi. GASTROINTESTINAL: Abdomen soft, much less tenderness to palpation today, nondistended. Positive bowel sounds MUSCULOSKELETAL: Extremities without clubbing, cyanosis, or edema. Pedal pulses appreciated NEUROLOGICAL: Awake and alert. Moves all extremity. Normal speech.no focal neurological deficit Pt update on day of discharge Tolerating solids, pain resolved, no fevers, stable for discharge to home. Hospital Course Mrs. Blakely is a 71 year old female. She was admitted with lower abdominal pain which was found to be Acute Diverticulitis. She has gradually improved through time on treatments of Flagyl and Cipro. Today she is fever free, and has tolerated an advancement to solids by today. Pain has improved. She is stable for discharge to home with antibiotics by mouth over the next week. Pt Condition on Discharge: Stable Discharge Disposition: Discharge Home Discharge Time: <= 30 minutes Discharge Instructions DIET: Follow Instructions for: As Tolerated, No Restrictions Activities you can perform: Regular-No Restrictions Follow up Referrals: PCP Follow-up - 2 Weeks New Medications: Ciprofloxacin (Ciprofloxacin) 500 Mg Tab 500 MG PO BID Infection #14 Ref 0 TAB Metronidazole (Flagyl) 500 Mg Tab 500 MG PO TID Infection #30 Ref 0 TAB Lisinopril (Lisinopril) 5 Mg Tab 2.5 MG PO DAILY htn #30 TAB Continued Medications: Rosuvastatin (Crestor) 20 Mg Tab 20 MG PO DAILY Cholesterol Management #30 Ref 0 TAB Kristian Nagy MD September 26, 2016 9:32 am
== END 2016-09-26 11:03 | disposition home or self-care (01) | DRG 392 ==
LOC: PHED 17:59 → PHEDA 21:47 → PH3A 22:47
PROVIDERS: ADMIT Hospitalist; ATTEND Hospitalist
DX: K57.32 Diverticulitis of large intestine without perforation or abscess without bleeding (principal); E86.0 Dehydration; I10 Essential (primary) hypertension; E78.5 Hyperlipidemia, unspecified; D72.829 Elevated white blood cell count, unspecified; R79.89 Other specified abnormal findings of blood chemistry; Z23 Encounter for immunization
CPT/HCPCS: 74177; 80048; 80053; 81001; 83690; 85025; 90471; 90732; 96374; 96375; G0009; J0744; J1956; J2270; J2405; J7030; Q9967